=== PATIENT | female | born 1975 | race Caucasian/White ===

== ENCOUNTER → 2021-10-15 | Day surgery (SDC) | payer OTHER ==
[2021-10-14 09:06] LABS: BASOPHILS # (AUTO) 0.1 (0.0-0.1); BASOPHILS % 0.8 % (0.0-1.0); EOSINOPHILS # (AUTO) 0.1 (0.0-0.4); EOSINOPHILS % 1.4 % (0.0-6.0); HEMATOCRIT 39.4 % (34.2-44.1); HEMOGLOBIN 12.6 g/dL (12.0-16.0); LYMPHOCYTES % 34.4 % (18.0-39.1); MONOCYTES # (AUTO) 0.5 (0.2-0.8); MONOCYTES % 9.2 % (4.4-11.3); NEUTROPHILS # (AUTO) 3.2 (2.1-6.9); NEUTROPHILS % 54.2 % (38.7-80.0); PLATELET COUNT 209 x10e3/uL (140-360); RED BLOOD COUNT 4.06 x10e6/uL (3.6-5.1); RED CELL DISTRIBUTION WIDTH 12.5 % (11.7-14.4)
[2021-10-14 09:27] LABS: ANION GAP 9.3 mmol/L (8-16); CALCIUM 8.3 mg/dL (8.4-10.2); CREATININE, SERUM 0.77 mg/dL (0.57-1.11); POTASSIUM 4.3 mmol/L (3.5-5.1)
[~2021-10-15] MED LIST: BUPIVACAINE 0.25% 30ML SDV ONE; DEXAMETHASONE SOD PHOS INJ 4 MG/ML SDV ONE; FENTANYL CITRATE/PF 100MCG/2 ML INJ ONE; KETOROLAC TROMETHAMINE 30 MG/ML VIAL ONE; LIDOCAINE HCL 2% LOCAL INJ 5 ML SDV VIAL INJ ONE; MIDAZOLAM HCL 2 MG/2 ML VIAL ONE; NEOMYCIN/POLYMYX/BACITR OINT 0.9 GM PKT ONE; ONDANSETRON HCL INJ 2MG/ML 2ML 2 MG/ML VIAL ONE; POVIDONE IODINE 0.05% 0.05 % ML PO ONE; PROPOFOL IV EMULSION 10 MG/ML 20 ML VIAL ONE; SEVOFLURANE INHAL SOLN 250 ML PEN BTL ONE; STEROID CREAM TOP
[2021-10-15 10:40] VITALS: BP 116/80
== END | disposition home or self-care (01) ==
LOC: OR 07:58
PROVIDERS: ATTEND Podiatrist Foot Surgery
DX: M72.2 Plantar fascial fibromatosis (principal); M77.32 Calcaneal spur, left foot; M79.672 Pain in left foot; Z01.810 Encounter for preprocedural cardiovascular examination; Z01.812 Encounter for preprocedural laboratory examination; Z01.818 Encounter for other preprocedural examination; G47.33 Obstructive sleep apnea (adult) (pediatric); E66.9 Obesity, unspecified; Z68.31 Body mass index [BMI] 31.0-31.9, adult; F41.9 Anxiety disorder, unspecified
CPT/HCPCS: 28119; 29893; 36415; 71046; 76000; 80048; 81025; 85025; 93005; J0690; J1100; J1885; J2001; J2250; J2405; J2704; J3010

== ENCOUNTER → 2024-12-27 | Day surgery (SDC) | payer OTHER ==
[2024-12-23 11:02] LABS: EST GLOMERULAR FILTRATION RATE 106.0 ML/MIN (>=60)
[~2024-12-27] MED LIST changes: -BUPIVACAINE 0.25% 30ML SDV ONE; +CEFAZOLIN SODIUM 2 GM ONE; +ESTRADIOL1 MG TOP; +ESTROGEN PATCH TOP; -KETOROLAC TROMETHAMINE 30 MG/ML VIAL ONE; +LACTATED RINGER'S 1,000 ML ONE; +METOCLOPRAMIDE HCL 10 MG/2ML VIAL ONE; -NEOMYCIN/POLYMYX/BACITR OINT 0.9 GM PKT ONE; -POVIDONE IODINE 0.05% 0.05 % ML PO ONE; -PROPOFOL IV EMULSION 10 MG/ML 20 ML VIAL ONE; +PROPOFOL IV EMULSION 50 ML IV ONE; +PROZAC10 MG PO; +SUCCINYLCHOLINE CHLORIDE 20 MG/ML 10ML VIAL ONE
[2024-12-27 07:42] VITALS: TEMP 97.7
[2024-12-27 08:30] VITALS: BP 120/79; PULSE 80; RESP 16; O2SAT 98
== END | disposition home or self-care (01) ==
LOC: OR 05:25
PROVIDERS: ATTEND Podiatrist Foot & Ankle Surgery
DX: M77.31 Calcaneal spur, right foot (principal); M72.2 Plantar fascial fibromatosis; E66.812 Obesity, class 2; G47.33 Obstructive sleep apnea (adult) (pediatric); F17.200 Nicotine dependence, unspecified, uncomplicated; F32.A Depression, unspecified; Z68.35 Body mass index [BMI] 35.0-35.9, adult; Z79.899 Other long term (current) drug therapy; Z01.810 Encounter for preprocedural cardiovascular examination
CPT/HCPCS: 28119; 36415; 71046; 80048; 81025; 93005; J0330; J1100; J2003; J2250; J2405; J2704; J2765; J3010; J7121